=== PATIENT | male | born 1980 ===

== ENCOUNTER 2018-03-28 03:15 | Outpatient (CLI) | payer BC | END 2018-03-28 23:59 | disposition home or self-care (01) | LOC: DIABETIC 03:15 | PROVIDERS: ATTEND General Practice | DX: E11.9 Type 2 diabetes mellitus without complications (principal) | CPT/HCPCS: G0108 ==

== ENCOUNTER 2018-05-01 08:00 | Outpatient (CLI) | payer BC | END 2018-05-01 23:59 | disposition home or self-care (01) | LOC: DIABETIC 08:00 | PROVIDERS: ATTEND General Practice | DX: E11.9 Type 2 diabetes mellitus without complications (principal); Z79.84 Long term (current) use of oral hypoglycemic drugs | CPT/HCPCS: G0108 ==